=== PATIENT | male | born 1965 | race African-American/Black ===

== ENCOUNTER 2022-11-07 20:04 | Emergency (ER) | payer MEDICAID ==
[~2022-11-07] VITALS: Ht 170.2 cm; Wt 84.4 kg
--- NOTE | 2022-11-07 20:07 | NUR ---
PT REPORTS SI AND HI, TRIAGE NURSE MADE AWARE TO BRING BACK IMMEDIATELY.
[2022-11-07 20:10] VITALS: BP 131/88
--- NOTE | 2022-11-07 20:24 | NUR ---
PT TO BED 6
[2022-11-07 20:46] LABS: BASOPHILS % (AUTO) 0.5 % (0.0-2.0); HEMATOCRIT 42.8 % (36-52); HEMOGLOBIN 14.3 g/dL (12.0-18.0); LYMPHOCYTES # (AUTO) 2.6 K/uL (2.0-11.5); LYMPHOCYTES % (AUTO) 45.6 % (20.5-51.1); MEAN CORPUSCULAR HEMOGLOBIN 29 pg (27-31); MEAN CORPUSCULAR HGB CONC 33 g/dL (33-37); MEAN CORPUSCULAR VOLUME 85.2 fL (80-94); MONOCYTES # (AUTO) 0.5 K/uL (0.8-1.0); MONOCYTES % (AUTO) 8.4 % (1.7-9.3); NEUTROPHILS # (AUTO) 2.6 K/uL (1.8-7.7); NEUTROPHILS % (AUTO) 45.5 % (42.2-75.2); PLATELET COUNT (AUTO) 472 K/uL (140-450); RED BLOOD CELL COUNT(AUTO) 5.03 MIL/uL (4.20-6.10); WHITE BLOOD COUNT (AUTO) 5.6 K/uL (4.8-10.8)
--- NOTE | 2022-11-07 20:48 | NUR ---
COVID SWAB COLLECTED AND SENT TO LAB
[2022-11-07 21:05] LABS: ALBUMIN 3.8 g/dL (3.4-5.0); ANION GAP 12.9 (8-16); ASPARTATE AMINOTRANSFERASE 23 U/L (15-37); CARBON DIOXIDE 30.6 mmol/L (21-32); CHLORIDE 105 mmol/L (98-107); GFR ARICAN-AMERICAN 99 mL/min (>90); GLUCOSE 129 mg/dL (74-106); POTASSIUM 3.5 mmol/L (3.5-5.1); SODIUM SERUM 145 mmol/L (136-145); TOTAL BILIRUBIN 0.5 mg/dL (0.0-1.0); UREA NITROGEN, BLOOD 15 mg/dL (7-18)
--- NOTE | 2022-11-07 21:13 | NUR ---
57YR OLD MALE BIB SELF C/O SI. HX OF SI IN PAST. PT IS A&OX4 DENIES PAIN CP OR SOB. PT STATES HE IS HOMELESS AND HAS HX OF SI AND DEPRESSION . HAS ATTEMPTED TO HARM SELF IN PAST. CURRENTLY IS HEARING VOICES TO HARM SELF . PT IS ANSWERING ALL QUESTIONS APPROPRITELY. ALL ITEMS FROM ROOM REMOVED FOR PT SAFETY. ALL PERSONAL ITEMS BAGGED AND TAGGED SENT TO SECURITY. BED AT LOWEST POSITION SIDE RAILS UP X2 NKDA DEPRESSION SZ
[2022-11-07] MEDS ORDERED: FLUO40CA6 PO (21:17)
[2022-11-07] MEDS ORDERED: QUET25TA PO (21:17)
[2022-11-07] MEDS ORDERED: PHEN100C3 PO (21:17)
--- NOTE | 2022-11-07 21:17 | NUR ---
MED RECONCILE DONE AND PERSONAL BELONGING
--- NOTE | 2022-11-07 21:36 | NUR ---
PT IS SLEEPING . FOOD WAS PROVIDED. PT DID STATE HE HAS NOT EATEN IN 2 DAYS. PT WITH IN VIEW FROM NURSES STATION
[2022-11-07 21:44] LABS: SALICYLATE < 2.8 mg/dL (2.8-20.0)
[2022-11-07 21:47] LABS: ACETAMINOPHEN < 0.5 ug/ml (10-30)
--- NOTE | 2022-11-07 23:52 | NUR ---
PENDING TELEPSYCH. PT SLEEPING WITH HOB ELEVATED. RESP EVEN AND UNLABORED
--- NOTE | 2022-11-08 01:39 | NUR ---
CALLED, INFORMED PT IS STILL SLEEPING. WILL CALL BACK IN THE MORNING WHEN PT IS AWAKE AND HAS HAD SOMETHING TO EAT.
--- NOTE | 2022-11-08 04:25 | NUR ---
PT SLEEPING RESP EVEN AND UNLABORED
--- NOTE | 2022-11-08 05:40 | NUR ---
PT UP TO BATHROOM. STEADY GAIT
--- NOTE | 2022-11-08 05:49 | NUR ---
PT AWAKE IN BED. URINE COLLECTED AND SENT TO LAB
[2022-11-08 06:20] LABS: BARBITURATE, URINE NEGATIVE ng/ml (NEG <=200); BENZODIAZEPINE, URINE NEGATIVE ng/mL (NEG <=200); CANNABINOID, URINE NEGATIVE ng/mL (NEG <=50); COCAINE, URINE NEGATIVE ng/mL (NEG <=300); OPIATE, URINE NEGATIVE ng/mL (NEG <=2000); PHENCYCLIDINE SCREEN,URINE NEGATIVE ng/mL (NEG <=25)
--- NOTE | 2022-11-08 07:25 | NUR ---
REPORT RECEIVED FROM MALCOM JIMENEZ. ASSUMED CARE AT THIS TIME
--- NOTE | 2022-11-08 07:36 | NUR ---
pt at rest w/ eyes closed. in view, bed at lowest position, bed rails upx2. seizure pads in place
--- NOTE | 2022-11-08 07:44 | NUR ---
pt provided w/ breakfast. pt awake and in eating in bed
--- NOTE | 2022-11-08 09:36 | NUR ---
pt provided w/ hygiene products. left at bedside
--- NOTE | 2022-11-08 10:36 | NUR ---
CALL RECEIVED FROM MD SRAN. SLAUGHTER TO CALL BACK 10-15MIN FOR TELEPSYCH.
--- NOTE | 2022-11-08 10:52 | NUR ---
MD WINSLOW PAGED TO FOLLOW UP
--- NOTE | 2022-11-08 11:05 | NUR ---
PT ON TELEPSYCH EVALUATION W/ MD WINSLOW
--- NOTE | 2022-11-08 11:17 | NUR ---
PER MD WINSLOW, PT TO BE PLACED ON 5150 HOLD AND STARTED ON RX SEROQUEL AND PROZAC. ERMD MADE AWARE. PROZAC 20MG PO DAILY SEROQUEL 50MG PO HS
--- NOTE | 2022-11-08 12:52 | NUR ---
[place] [facility] AT BEDSIDE
--- NOTE | 2022-11-08 12:54 | NUR ---
PT PLACED ON 5150 HOLD- DTS BY OFFICER [facility]
--- NOTE | 2022-11-08 18:15 | NUR ---
pt provided w/ dinner. pt awake and eating in bed.
--- NOTE | 2022-11-08 18:18 | NUR ---
ATTEMPT TO GIVE REPORT TO CANDY TERESA AT [facility]. NURSE UNABLE TO TAKE REPORT AT THIS TIME. "DONT HAVE PT INTAKE" . CANDY TO CALL BACK WHEN INTAKE RECEIVED.
[2022-11-08 18:20] VITALS: BP 120/68
--- NOTE | 2022-11-08 18:32 | NUR ---
Patient to be transferred to [facility]. Is being transferred due to HIGHER LEVEL OF CARE. Receiving facility has accepting physician and available space. ER physician has signed transfer form. Patient or responsible republican has agreed to transfer and signed form. Patient belongings inventoried and will be sent with patient. Copy of nursing notes, lab reports, Physicians Orders to be sent with patient. Report called to CANDY TERESA at receiving facility. [facility] ambulance service has been called for transfer. ETA FOR PT [place]- [phone].
--- NOTE | 2022-11-08 19:11 | NUR ---
[facility] BEDSIDE FOR TX TO [facility]
--- NOTE | 2022-11-08 19:12 | NUR ---
[facility] AT BEDSIDE
--- NOTE | 2022-11-08 19:15 | NUR ---
PT RC'D FROM DAY SHIFT NURSE, AWAITING TRANSPORT.
--- NOTE | 2022-11-08 19:18 | NUR ---
REPORT GIVEN TO FABRICE TERESA. TRANSFER OF CARE AT THIS TIME
--- NOTE | 2022-11-08 19:26 | NUR ---
[facility] TRANSPORTED PT TO ANOTHER FACILITY.
== END 2022-11-08 19:26 ==
LOC: MED 20:04
DX: R45.851 Suicidal ideations (principal); Z20.822 Contact with and (suspected) exposure to COVID-19; F15.10 Other stimulant abuse, uncomplicated; F32.A Depression, unspecified
CPT/HCPCS: 36415; 80053; 80305; 85025; 87426; 87635; 99285; G0480; G0482

== ENCOUNTER 2022-12-09 14:18 | Emergency (ER) | payer MEDICAID ==
[~2022-12-09] VITALS: Ht 167.6 cm; Wt 93.2 kg
[~2022-12-09 14:18] MED LIST: FLUO40CA6 PO; PHEN100C3 PO; QUET25TA PO
[2022-12-09 14:32] VITALS: BP 158/82
--- NOTE | 2022-12-09 14:36 | NUR ---
pt to lobby
--- NOTE | 2022-12-09 14:44 | NUR ---
PT AMBULATED TO ER BED 6
--- NOTE | 2022-12-09 14:49 | NUR ---
MD FERNÁNDEZ AT BEDSIDE FOR EVALUATION
--- NOTE | 2022-12-09 14:50 | NUR ---
57YO MALE PT C/O INCREASED L LEG PAIN XTODAY. REPORTS SUDDEN "NEEDLE POKE" EPISODE WHILE GOING UP STAIRS W/ INITIAL ONSET 8MONTHS AGO. LEG W/O VISIBLE INJURY. DENIES NUMBING OR LOSS OF SENSATION. PT AAOX4, AMB W/ STEADY GAIT. HOB POSITIONED PER COMFORT. HX:SEIZURE NKA
--- NOTE | 2022-12-09 15:02 | NUR ---
lab at bedside
[2022-12-09 15:20] LABS: BASOPHILS # (AUTO) 0.1 K/uL (0.00-0.22); BASOPHILS % (AUTO) 0.7 % (0.0-2.0); HEMOGLOBIN 13.9 g/dL (12.0-18.0); LYMPHOCYTES # (AUTO) 3.1 K/uL (2.0-11.5); LYMPHOCYTES % (AUTO) 40.1 % (20.5-51.1); MEAN CORPUSCULAR HEMOGLOBIN 28 pg (27-31); MEAN CORPUSCULAR HGB CONC 33 g/dL (33-37); MEAN CORPUSCULAR VOLUME 84.7 fL (80-94); MONOCYTES # (AUTO) 0.6 K/uL (0.8-1.0); MONOCYTES % (AUTO) 7.3 % (1.7-9.3); NEUTROPHILS # (AUTO) 4.1 K/uL (1.8-7.7); NEUTROPHILS % (AUTO) 51.9 % (42.2-75.2); PLATELET COUNT (AUTO) 436 K/uL (140-450); RED BLOOD CELL COUNT(AUTO) 4.96 MIL/uL (4.20-6.10); RED CELL DISTRIBUTION WIDTH 15.1 % (11.6-13.7); WHITE BLOOD COUNT (AUTO) 7.8 K/uL (4.8-10.8)
[2022-12-09 15:35] LABS: ALBUMIN 3.6 g/dL (3.4-5.0); ANION GAP 10.7 (8-16); CARBON DIOXIDE 28.1 mmol/L (21-32); POTASSIUM 3.8 mmol/L (3.5-5.1); TOTAL BILIRUBIN 0.1 mg/dL (0.0-1.0)
--- NOTE | 2022-12-09 16:46 | NUR ---
Patient discharged with v/s stable. Written and verbal after care instructions FOR NEUROPATHIC PAIN AND MUSCLE CRAMPS given and explained. Patient verbalized understanding. Ambulatory with steady gait. All questions addressed prior to discharge. Advised to follow up with PMD.
--- NOTE | 2022-12-09 17:01 | NUR ---
The patient's care was reviewed and supervised by Nayla Morales RN.
== END 2022-12-09 16:46 | disposition home or self-care (01) ==
LOC: MED 14:18
DX: R25.2 Cramp and spasm (principal); G57.82 Other specified mononeuropathies of left lower limb; Z79.899 Other long term (current) drug therapy
CPT/HCPCS: 36415; 80053; 85025; 99283

== ENCOUNTER 2022-12-16 08:22 | Emergency (ER) | payer MEDICAID ==
[~2022-12-16] VITALS: Ht 170.2 cm; Wt 92.5 kg
[2022-12-16 08:30] VITALS: BP 142/95
--- NOTE | 2022-12-16 12:07 | NUR ---
YESI MALIK ATTEMPTED TO BRING PT BACK, NOT FOUND IN LOBBY/OUTSIDE
--- NOTE | 2022-12-16 12:34 | NUR ---
2ND ATTEMPT, PT NOT FOUND
--- NOTE | 2022-12-16 12:45 | NUR ---
LAST ATTEMPT, PT NOT FOUND. PATIENT LEFT WITHOUT BEING SEEN BY DR. OSEI. NO FURTHER CARE PROVIDED FOR PATIENT.
== END 2022-12-16 12:45 | disposition left against medical advice (07) ==
LOC: MED 08:22
DX: M79.605 Pain in left leg (principal); Z53.21 Procedure and treatment not carried out due to patient leaving prior to being seen by health care provider
CPT/HCPCS: 99281

== ENCOUNTER 2022-12-17 11:34 | Emergency (ER) | payer MEDICAID ==
[~2022-12-17] VITALS: Ht 170.2 cm; Wt 92.5 kg
[2022-12-17 11:57] VITALS: BP 136/79
--- NOTE | 2022-12-17 14:40 | NUR ---
PT CALLED AT 1350, 1410, 1440, NO ANSWER IN THE LOBBY. PT LEFT WITHOUT BEING SEEN.
== END 2022-12-17 13:50 | disposition left against medical advice (07) ==
LOC: MED 11:34
DX: M79.605 Pain in left leg (principal); Z53.21 Procedure and treatment not carried out due to patient leaving prior to being seen by health care provider
CPT/HCPCS: 99281

== ENCOUNTER 2022-12-17 18:45 | Emergency (ER) | payer MEDICAID ==
[~2022-12-17] VITALS: Ht 170.2 cm; Wt 92.5 kg
[2022-12-17 18:56] VITALS: BP 127/79; PULSE 90; RESP 18; TEMP 97.5; O2SAT 100
--- NOTE | 2022-12-17 19:28 | NUR ---
PIPE LINE REPAIRER PETERSON examining patient.
[2022-12-17 19:53] VITALS: BP 127/79; PULSE 90; RESP 18; TEMP 97.5; O2SAT 100
--- NOTE | 2022-12-17 19:53 | NUR ---
d/c pt left without paperwork.
== END 2022-12-17 19:53 | disposition home or self-care (01) ==
LOC: MED 18:45
DX: G89.29 Other chronic pain (principal); M25.562 Pain in left knee; Z86.69 Personal history of other diseases of the nervous system and sense organs; Z79.899 Other long term (current) drug therapy
CPT/HCPCS: 99281